=== PATIENT | female | born 1960 | race Caucasian/White ===

== ENCOUNTER 2020-06-30 13:15 | Outpatient (REF) | payer OTHER, SELFPAY ==
--- NOTE | ~2020-06-30 | MM_ITS ---
EXAMINATION: MM SCREENING DIGITAL BREAST TOMOSYNTHESIS, BILATERAL CLINICAL INFORMATION: Screening. Asymptomatic. The lifetime risk of breast cancer based on the Tyrer-Cuzick Model is 8%. COMPARISON: Mammography: 03/21/2019, 01/30/2018, 01/24/2017 TECHNIQUE: Digital breast tomosynthesis is performed in both the craniocaudal and mediolateral oblique views along with computer-aided detection (CAD). Synthesized 2D images are generated from the tomosynthesis. FINDINGS: The breasts are heterogeneously dense, which may obscure small masses (ACR BI-RADS breast composition Category c). There are no significant masses, abnormal calcifications, or other abnormalities. The axilla and skin contours are unremarkable. No significant changes. MM/MM tomosynthesis screening BI IMPRESSION: No mammographic evidence of malignancy. ASSESSMENT: BI-RADS 1: Negative RECOMMENDATION: Routine annual mammography screening. This patient's information was entered into a reminder system with a target due date for their next mammogram.
== END 2020-06-30 13:16 | disposition home or self-care (01) ==
LOC: HO.MAMMO 13:15
PROVIDERS: PCP Internal Medicine; Visit Provider Internal Medicine
DX: Z12.31 Encounter for screening mammogram for malignant neoplasm of breast (principal)
CPT/HCPCS: 77063; 77067

== ENCOUNTER 2020-09-18 10:46 | Outpatient (REF) | payer OTHER, SELFPAY ==
--- NOTE | ~2020-09-18 | MM_ITS ---
EXAMINATION: BONE DENSITOMETRY CLINICAL INDICATION: Postmenopausal. COMPARISON: This is the patient's baseline examination. TECHNIQUE: Using a [employer] DXA System (software version: 13.1) manufactured by [employer], dual-energy x-ray absorptiometry was performed of the lumbar spine and left hip. The images are of good technical quality. Summary results are attached. FINDINGS: AP SPINE L1-L4: BMD 0.886 g/cm2, Z-score -0.8, T-score -2.4, osteopenia. LEFT FEMUR, NECK: BMD 0.701 g/cm2, Z-score -0.9, T-score -2.4, osteopenia. LEFT FEMUR, TOTAL: BMD 0.772 g/cm2, Z-score -0.7, T-score -1.9, osteopenia. IDENTIFIED RISK FACTORS: Height loss, tobacco use (current smoker), history of fracture (adult), menopause. HISTORY OF FRACTURE: Lower leg. MEDICATIONS: None listed. MM/XR DEXA axial skeleton IMPRESSION: 1. DIAGNOSIS: Osteopenia based on the lowest T-score value of -2.4 in the femoral neck and lumbar spine applying World Health Organization criteria. 2. 10-YEAR FRACTURE RISK PREDICTION, FRAX: Major osteoporotic fracture (clinical spine, forearm, hip or shoulder) 17.3%. Hip fracture 5.6%. 3. Treatment Recommendations: NOF guidelines recommend consideration for treatment in postmenopausal women and men age 50 and older presenting with the following: -A hip or vertebral (clinical or morphometric) fracture. -T-score less than or equal to -2.5 at the femoral neck or spine after appropriate evaluation to exclude secondary causes. -Low bone mass at the hip or spine and a 10-year fracture probability by FRAX of greater than or equal to 3% for hip fracture or greater than or equal to 20% for major osteoporotic fracture based on the [place] adapted WHO algorithm. 4. Other Recommendations: All treatment decisions require clinical judgment and consideration of individual patient factors, including patient preferences, comorbidities, previous drug use, risk factors not captured in the FRAX model (e.g. frailty, falls, vitamin D deficiency, increased bone turnover, interval significant decline in bone density) and possible under or overestimation of fracture risk by FRAX. Additional medical evaluation for secondary cause of low bone mineral density may be appropriate. FUTURE SCAN RECOMMENDATION: People with diagnosed cases of osteoporosis or at high risk for fracture should have regular bone mineral density tests. For patients eligible for Medicare, routine testing is allowed once every 2 years. The testing frequency can be increased to one year for patients who have rapidly progressing disease, those who are receiving or discontinuing medical therapy to restore bone mass, or have additional risk factors.
== END 2020-09-18 10:47 | disposition home or self-care (01) ==
LOC: HO.MAMMO 10:46
PROVIDERS: Visit Provider Internal Medicine
DX: Z13.820 Encounter for screening for osteoporosis (principal); Z78.0 Asymptomatic menopausal state; R29.890 Loss of height; Z72.0 Tobacco use; Z87.81 Personal history of (healed) traumatic fracture
CPT/HCPCS: 77080

== ENCOUNTER 2021-08-06 11:01 | Outpatient (REF) | payer OTHER, SELFPAY ==
--- NOTE | ~2021-08-06 | MM_ITS ---
EXAMINATION: MM SCREENING DIGITAL BREAST TOMOSYNTHESIS, BILATERAL CLINICAL INFORMATION: Screening. Asymptomatic. The lifetime risk of breast cancer based on the Tyrer-Cuzick Model is 9%. COMPARISON: Mammography: 06/30/2020, 03/21/2019, 01/30/2018, 01/24/2017 TECHNIQUE: Digital breast tomosynthesis is performed in both the craniocaudal and mediolateral oblique views along with computer-aided detection (CAD). Synthesized 2D images are generated from the tomosynthesis. FINDINGS: The breasts are heterogeneously dense, which may obscure small masses (ACR BI-RADS breast composition Category c). There is a 0.5 cm focal nodular asymmetry posterior 11:30 left breast. Margins are ill-defined. Patient will be recalled for additional imaging. The remainder of the breasts show no significant changes from prior studies. There are scattered benign round and coarse round calcifications. The axilla and skin contours are unremarkable. MM/MM tomosynthesis screening BI IMPRESSION: Left: -Small focal asymmetric density posterior 11:30 left breast. Right: -No mammographic evidence of malignancy. ASSESSMENT: BI-RADS 0: Incomplete - Need Additional Imaging Evaluation RECOMMENDATION: 1. Additional views of the left breast for margins (spot CC, spot ML). 2. Targeted ultrasound left breast. 3. Radiology department staff will contact the patient for additional imaging. This patient's information was entered into a reminder system with a target due date for their next mammogram.
== END 2021-08-06 11:02 | disposition home or self-care (01) ==
LOC: HO.MAMMO 11:01
PROVIDERS: Visit Provider Internal Medicine
DX: Z12.31 Encounter for screening mammogram for malignant neoplasm of breast (principal)
CPT/HCPCS: 77063; 77067

== ENCOUNTER 2021-08-18 10:27 | Outpatient (REF) | payer OTHER, SELFPAY ==
--- NOTE | ~2021-08-18 | MM_ITS ---
EXAMINATION: MM DIAGNOSTIC DIGITAL BREAST TOMOSYNTHESIS, LEFT US DIAGNOSTIC ULTRASOUND BREAST, LEFT CLINICAL INFORMATION: Recall from screening for 5 mm focal nodular asymmetry posterior 11:30 left breast. TC score 9%. Family history breast cancer, sister. COMPARISON: Mammography: 08/06/2021, 06/30/2020, 03/21/2019, 01/30/2018, 01/24/2017 TECHNIQUE: Digital breast tomosynthesis is performed. 2D images are generated from the tomosynthesis. The following views are obtained: Spot CC, spot ML. Ultrasound left breast is targeted to the upper breast by both the corrugated fastener driver and radiologist independently. Grayscale imaging and color Doppler are performed without and with harmonics. FINDINGS: The breasts are heterogeneously dense, which may obscure small masses (ACR BI-RADS breast composition Category c). The additional spot views show scattered fibroglandular densities without appreciable three-dimensional focal asymmetric density. No architectural abnormality. Ultrasound demonstrates no cystic or solid mass or architectural abnormality. No focal duct ectasia. No skin thickening or edema tracking in soft tissue planes. Results are discussed with the patient at time of visit. Finding on recent mammography may have represented summation artifact. As a precaution, short interval six-month follow-up left mammography will be requested to exclude remote possibility of an occult developing density. MM/MM tomosynthesis added views L IMPRESSION: -Additional spot views show no convincing persistent focal asymmetric density or architectural abnormality. -Normal targeted left breast ultrasound. ASSESSMENT: BI-RADS 3: Probably Benign RECOMMENDATION: Diagnostic left mammography in 6 months. This patient's information was entered into a reminder system with a target due date for their next mammogram.
== END 2021-08-18 10:28 | disposition home or self-care (01) ==
LOC: HO.MAMMO 10:27
PROVIDERS: PCP Internal Medicine; Visit Provider Internal Medicine
DX: R92.2 Inconclusive mammogram (principal)
CPT/HCPCS: 76642; 77061; 77065

== ENCOUNTER 2022-02-18 10:43 | Outpatient (REF) | payer OTHER, SELFPAY ==
--- NOTE | ~2022-02-18 | MM_ITS ---
EXAMINATION: MM DIAGNOSTIC DIGITAL BREAST TOMOSYNTHESIS, LEFT CLINICAL INFORMATION: Short interval six-month follow-up for small nodular asymmetric density posterior 11:30 left breast with no persistence on recall additional views or ultrasound. Assess for developing density. Family history breast cancer, sister. TC score 9%. COMPARISON: Mammography: 08/18/2021, 08/06/2021, 06/30/2020, left breast ultrasound 08/18/2021 TECHNIQUE: Digital breast tomosynthesis is performed in both the craniocaudal and mediolateral oblique views along with computer-aided detection (CAD). Synthesized 2D images are generated from the tomosynthesis. FINDINGS: The breasts are heterogeneously dense, which may obscure small masses (ACR BI-RADS breast composition Category c). The asymmetric density posterior 11:30 position is no longer demonstrated. There is no developing density or interval architectural abnormality. The remainder of the breast parenchymal pattern is similar to prior studies. No abnormal calcifications. The axilla and skin contours are unremarkable. Results are provided to the patient at time of visit by the technologist. MM/MM tomosynthesis diagnostic LT IMPRESSION: -No mammographic evidence of malignancy. -The finding for follow-up is no longer demonstrated. ASSESSMENT: BI-RADS 2: Benign RECOMMENDATION: Routine annual mammography screening. This patient's information was entered into a reminder system with a target due date for their next mammogram.
== END 2022-02-18 10:44 | disposition home or self-care (01) ==
LOC: HO.MAMMO 10:43
PROVIDERS: Visit Provider Internal Medicine
DX: R92.2 Inconclusive mammogram (principal)
CPT/HCPCS: 77061; 77065

== ENCOUNTER 2022-07-27 09:52 | Outpatient (REF) | payer OTHER, SELFPAY ==
[2022-07-27 11:18] LABS: MANUAL DIFF FLAG NO
[2022-07-27 11:24] LABS: Appearance Urine Clear; Color Urine Yellow; Glucose Urine UA Negative (Negative); Leukocyte Esterase Urine Small (1+) (Negative); Nitrite Urine Negative (Negative); PH 5.5 (5.0-9.0); Specific Gravity - Urine 1.015 (1.005-1.025); UMIC TRIGGER UA YES; Urine Blood Negative (Negative); Urine Ketones Trace mg/dL (Negative); Urine Protein Negative (Neg-Trace)
[2022-07-27 11:31] LABS: Bacteria Urine None Seen (None Seen); Hyaline Casts Urine 0-2 /LPF (0-2); RBC Urine 0-2 /HPF (0-2)
[2022-07-27 11:35] LABS: Basophils Absolute Auto 0.1 X10*3/uL (0.0-0.2); Basophils Percent Auto 0.7 % (0-2); Eosinophils Absolute Auto 0.1 X10*3/uL (0.0-0.4); Eosinophils Percent Auto 1.2 % (0-4); Hematocrit 42.8 % (37.0-47.0); Hemoglobin 14.3 g/dl (12.0-16.0); Imm Gran Abs Auto 0.02 X10*3/uL (0.00-0.03); Imm Gran Pct Auto 0.2 % (0.0-0.4); Lymphocytes Percent Auto 24.6 % (20-40); Mean Corpuscular HGB Conc 33.4 g/dl (31.0-35.0); Mean Corpuscular Hemoglobin 32.8 pg (27.0-33.0); Mean Corpuscular Volume 98.2 fL (80.0-98.0); Mean Platelet Volume 9.2 fL (9.4-12.3); Monocytes Absolute Auto 0.6 X10*3/uL (0.1-1.2); Monocytes Percent Auto 7.3 % (2-11); Neutrophils Absolute Auto 5.3 x10*3/uL (2.0-8.3); Platelet Count 296 X10*3/uL (160-400); Red Blood Count 4.36 X10*6/uL (4.20-5.50); Red Cell Distribution Width 12.4 % (11.0-16.0); White Blood Count 8.1 X10*3/uL (4.8-10.8)
[2022-07-27 12:09] LABS: Alanine Aminotransferase 23 U/L (0-31); Albumin Level 4.5 g/dL (3.5-5.0); Alkaline Phosphatase 65 U/L (39-117); Anion Gap 15 (12-20); Aspartate Amino Transferase 24 U/L (5-31); Bilirubin Total 0.6 mg/dL (0.0-1.0); Blood Urea Nitrogen 8 mg/dL (9-16); Calcium 9.7 mg/dL (8.4-10.2); Carbon Dioxide 27 mmol/L (22-29); Chloride 100 mmol/L (96-108); Cholesterol 291 mg/dL; Estimated Glomerular Filt Rate > 60; Glucose Fasting 86 mg/dL (60-99); HDL Cholesterol 76 mg/dL; LDL Cholesterol Calculated 180 mg/dl; Lipase 40 U/L (8-78); Potassium 3.7 mmol/L (3.3-5.1); Sodium 138 mmol/L (135-145); Triglycerides 175 mg/dL; Vitamin D 25-OH Total 16.7 ng/mL (>30)
== END 2022-07-27 09:53 | disposition home or self-care (01) ==
LOC: HO.HMGCLDS 09:52
PROVIDERS: PCP Internal Medicine; Visit Provider Internal Medicine
DX: E78.00 Pure hypercholesterolemia, unspecified (principal); R10.9 Unspecified abdominal pain; M85.80 Other specified disorders of bone density and structure, unspecified site
CPT/HCPCS: 36415; 80053; 80061; 81001; 82306; 83690; 85025

== ENCOUNTER 2022-08-23 12:49 | Outpatient (REF) | payer OTHER, SELFPAY ==
--- NOTE | ~2022-08-23 | MM_ITS ---
EXAMINATION: MM SCREENING DIGITAL BREAST TOMOSYNTHESIS, BILATERAL CLINICAL INFORMATION: Screening. Asymptomatic. Family history breast cancer, sister. The lifetime risk of breast cancer based on the Tyrer-Cuzick Model is 9%. COMPARISON: Mammography: 02/18/2022, 08/18/2021, 08/06/2021, 06/30/2020, 03/21/2019; left breast ultrasound 08/18/2021. TECHNIQUE: Digital breast tomosynthesis is performed in both the craniocaudal and mediolateral oblique views along with computer-aided detection (CAD). Synthesized 2D images are generated from the tomosynthesis. FINDINGS: The breasts are heterogeneously dense, which may obscure small masses (ACR BI-RADS breast composition Category c). Breast tissue composition borders on average fibroglandular. There are no significant masses, abnormal calcifications, or other abnormalities. No developing density or architectural abnormality. The axilla and skin contours are unremarkable. No significant changes. MM/MM tomosynthesis screening BI IMPRESSION: No mammographic evidence of malignancy. ASSESSMENT: BI-RADS 1: Negative RECOMMENDATION: Routine annual mammography screening. This patient's information was entered into a reminder system with a target due date for their next mammogram.
== END 2022-08-23 12:50 | disposition home or self-care (01) ==
LOC: HO.MAMMO 12:49
PROVIDERS: PCP Internal Medicine; Visit Provider Internal Medicine
DX: Z12.31 Encounter for screening mammogram for malignant neoplasm of breast (principal)
CPT/HCPCS: 77063; 77067

== ENCOUNTER 2023-05-27 08:41 | Outpatient (REF) | payer OTHER, SELFPAY ==
[2023-05-27 10:30] LABS: MANUAL DIFF FLAG NO
[2023-05-27 10:34] LABS: Basophils Absolute Auto 0.1 X10*3/uL (0.0-0.2); Basophils Percent Auto 0.9 % (0-2); Eosinophils Absolute Auto 0.2 X10*3/uL (0.0-0.4); Eosinophils Percent Auto 1.8 % (0-4); Hematocrit 43.1 % (37.0-47.0); Hemoglobin 14.5 g/dl (12.0-16.0); Imm Gran Abs Auto 0.03 X10*3/uL (0.00-0.03); Imm Gran Pct Auto 0.3 % (0.0-0.4); Lymphocytes Absolute Auto 1.7 X10*3/uL (1.2-4.9); Lymphocytes Percent Auto 17.1 % (20-40); Mean Corpuscular HGB Conc 33.6 g/dl (31.0-35.0); Mean Corpuscular Hemoglobin 33.6 pg (27.0-33.0); Monocytes Absolute Auto 0.6 X10*3/uL (0.1-1.2); Monocytes Percent Auto 5.8 % (2-11); Neutrophils Absolute Auto 7.5 x10*3/uL (2.0-8.3); Neutrophils Percent Auto 74.1 % (45-73); Platelet Count 329 X10*3/uL (160-400); Red Blood Count 4.31 X10*6/uL (4.20-5.50); Red Cell Distribution Width 12.8 % (11.0-16.0); White Blood Count 10.2 X10*3/uL (4.8-10.8)
[2023-05-27 11:06] LABS: Alanine Aminotransferase 29 U/L (0-31); Albumin Level 4.6 g/dL (3.5-5.0); Alkaline Phosphatase 69 U/L (39-117); Anion Gap 15 (12-20); Aspartate Amino Transferase 34 U/L (5-31); Bilirubin Total 0.6 mg/dL (0.0-1.0); Blood Urea Nitrogen 9 mg/dL (9-16); Calcium 9.8 mg/dL (8.4-10.2); Carbon Dioxide 27 mmol/L (22-29); Chloride 101 mmol/L (96-108); Cholesterol 274 mg/dL (<200); Estimated Glomerular Filt Rate > 60; Glucose Fasting 90 mg/dL (60-99); HDL Cholesterol 86 mg/dL (>40); LDL Cholesterol Calculated 152 mg/dL (<100); Potassium 3.8 mmol/L (3.3-5.1); Sodium 139 mmol/L (135-145); Total Protein 7.6 g/dL (6.5-8.0); Triglycerides 180 mg/dL (<150)
== END 2023-05-27 08:42 | disposition home or self-care (01) ==
LOC: HO.HMGCLDS 08:41
PROVIDERS: PCP Internal Medicine; Visit Provider Internal Medicine
DX: E78.00 Pure hypercholesterolemia, unspecified (principal); E55.9 Vitamin D deficiency, unspecified; Z86.010 Personal history of colon polyps
CPT/HCPCS: 36415; 80053; 80061; 82306; 85025

== ENCOUNTER 2023-10-10 10:33 | Outpatient (REF) | payer OTHER, SELFPAY ==
--- NOTE | ~2023-10-10 | MM_ITS ---
EXAMINATION: MM SCREENING DIGITAL BREAST TOMOSYNTHESIS, BILATERAL CLINICAL INFORMATION: Screening. Asymptomatic. COMPARISON: Mammography: This study is compared with prior exams dating back to 2019. TECHNIQUE: Digital breast tomosynthesis is performed in both the craniocaudal and mediolateral oblique views along with computer-aided detection (CAD). Synthesized 2D images are generated from the tomosynthesis. FINDINGS: The breasts are heterogeneously dense, which may obscure small masses (ACR BI-RADS breast composition Category c). There are no significant masses, abnormal calcifications, or other abnormalities. MM/MM tomosynthesis screening BI IMPRESSION: No mammographic evidence of malignancy. ASSESSMENT: BI-RADS BI-RADS 1 - Negative RECOMMENDATION: Routine annual mammography screening. 1 year F/U This examination should not preclude the clinical evaluation of a suspicious palpable abnormality. This patient's information was entered into a reminder system with a target due date for their next mammogram. Electronically signed by: Damaris Salomon MD 11/08/2023 06:42 AM EDT
== END 2023-10-10 10:34 | disposition home or self-care (01) ==
LOC: HO.MAMMO 10:33
PROVIDERS: PCP Internal Medicine; Visit Provider Internal Medicine
DX: Z12.31 Encounter for screening mammogram for malignant neoplasm of breast (principal)
CPT/HCPCS: 77063; 77067

== ENCOUNTER → 2023-10-10 10:45 | Outpatient (BNV) | payer OTHER, SELFPAY | PROVIDERS: PCP Internal Medicine; Visit Provider Radiology Diagnostic Radiology | DX: Z12.31 Encounter for screening mammogram for malignant neoplasm of breast (principal) | CPT/HCPCS: 77063; 77067 ==

== ENCOUNTER → 2023-10-31 08:51 | Outpatient (REF) | payer OTHER, SELFPAY ==
--- NOTE | 2023-10-31 08:53 | CA_ITS ---
Acquisition Time: 2023-10-31 09:10:30 Total Exercise Time: 00:07:36 Test Indications: CP Medications: LORAZAPAM ATORVASTATIN Protocol: ALMA Max HR: 136 BPM 85% of Pred: 159 BPM Max BP: 152/082 mmHG Max Work Load: 9.4 METS Exercise stress test exercise 7 min 36 sec of Alma protocol 85% MPHR, with 1-2/10 chest tightness at baseline. increase to 3-4/10, with mild SOB, with isolated PVCt, with normotensive response to exericse, without EKG changes. Chest discomfort returned to baseline. Test reviewed with Dr. Kramer. Referred By: Moisés Schuster Overread By: Jo Ann Wallace
== END ==
LOC: HO.CARD 08:51
PROVIDERS: PCP Internal Medicine; Visit Provider Internal Medicine
DX: R07.9 Chest pain, unspecified (principal)
CPT/HCPCS: 93017

== ENCOUNTER → 2023-10-31 08:53 | Outpatient (BNV) | payer OTHER, SELFPAY | PROVIDERS: PCP Internal Medicine; Visit Provider Nurse Practitioner | DX: R06.02 Shortness of breath (principal); I49.3 Ventricular premature depolarization | CPT/HCPCS: 93016; 93018 ==

== ENCOUNTER 2023-11-08 08:23 | Outpatient (AMB) | payer OTHER, SELFPAY ==
--- NOTE | 2023-11-08 08:24 | AM.OFFWIN_ITS ---
Intake Vital Signs 11/08/23 08:33 Height 5 ft 1 in Weight 99 lb BMI 18.7 BP 140/98 H Blood Pressure Location Lt brachial Position Sitting Pulse 78 Pulse Source Pulse Oximeter Pulse Oximetry (%) 100 Oxygen Delivery Method Room Air Intake Visit Reasons: EP ?UTI/Yeast Intake Note: pt c/o urinary symptoms and ? yeast infection. Started Patient Tobacco Use Status: Never used Tobacco Allergies No Known Allergies Allergy (Verified 11/08/23 08:25) some adhesives Allergy (Unknown, Uncoded 11/08/23 08:25) rash Medication List - Last Reconciled 11/08/23 by Jayjay Vee MD atorvastatin 10 mg PO DAILY lorazepam mg PO Do you need a note to return to daycare/school/sports/work: No HPI EP ?UTI/Yeast HPI Details Patient is 63-year-old female started having vaginal itching about 10 days ago Use [id number] antifungal cream which did not help Came in today to be evaluated for possible UTI or yeast infection Also having discharge from the vagina On examination she has erythema around genital area We have taken vaginal swab Meanwhile I am treating her for yeast infection with Diflucan 2 tablets Q 3 days UA did not show any signs of infection. Review system reveals no abdominal pain, no nausea no vomiting no back pain no fever no chills PFSH Social History Patient Tobacco Use Status: Never used Tobacco Review of Systems Const All systems reviewed & are unremarkable except as noted in HPI and below Physical Exam Vital Signs: Last Vital Signs Pulse 78 11/08/23 08:33 BP 140/98 H 11/08/23 08:33 Pulse Ox 100 11/08/23 08:33 Oxygen Delivery Method Room Air 11/08/23 08:33 BMI result Body Mass Index 18.7 Const General: no acute distress Orientation/consciousness: patient oriented x3 Eyes General: appearance normal, both eyes and all related structures Resp Effort & Inspection: normal respiratory effort and able to speak in complete sentences Auscultation: clear to auscultation bilaterally Other: Erythema around genitalia labia majora present Neuro General: patient oriented x3 Psych Mental Status: mental status grossly normal Results AMB Urinalysis, Automated UA Leukoctes 0 Brent/uL Last Edit by CHRIS Ruiz on 11/08/23 08:37 UA Nitrite Negative Last Edit by Debbi Garcia [facility] on 11/08/23 08:37 UA Urobilinogen 0.2 mg/dL Last Edit by Debbi Garcia [facility] on 11/08/23 08:37 UA Protein 0 mg/dL Last Edit by Debbi Garcia [facility] on 11/08/23 08:37 UA pH 6.0 Last Edit by Debbi Garcia [facility] on 11/08/23 08:37 UA Blood 0 Roby/uL Last Edit by Debbi Garcia [facility] on 11/08/23 08:37 UA Specific [facility] 1.025 Last Edit by Debbi Garcia [facility] on 11/08/23 08:37 UA Ketone Negative Last Edit by Debbi Garcia [facility] on 11/08/23 08:37 UA Bilirubin 0 mg/dL Last Edit by Debbi Garcia [facility] on 11/08/23 08:37 UA Glucose 0 mg/dL Last Edit by Debbi Garcia [facility] on 11/08/23 08:37 Results Reviewed Results Reviewed: Laboratory Last Values Urine pH (Auto) 6.0 11/08/23 08:36 Specific [facility] (Auto) 1.025 11/08/23 08:36 Urine Protein (Auto) 0 mg/dL 11/08/23 08:36 Glucose (UA)(Auto) 0 mg/dL 11/08/23 08:36 Urine Ketones (Auto) Negative 11/08/23 08:36 Urine Blood (Auto) 0 Roby/uL 11/08/23 08:36 Urine Nitrite (Auto) Negative 11/08/23 08:36 Urine Bilirubin (Auto) 0 mg/dL 11/08/23 08:36 Urine Urobilinogen (Auto) 0.2 mg/dL 11/08/23 08:36 Leukocyte Esterase (Auto) 0 Brent/uL 11/08/23 08:36 Assessment & Plan Assessment & Plan (1) Acute vaginitis: Code(s): N76.0 - Acute vaginitis Plan Patient is 63-year-old female started having vaginal itching about 10 days ago Use [id number] antifungal cream which did not help Came in today to be evaluated for possible UTI or yeast infection Also having discharge from the vagina On examination she has erythema around genital area We have taken vaginal swab Meanwhile I am treating her for yeast infection with Diflucan 2 tablets Q 3 days UA did not show any signs of infection. Review system reveals no abdominal pain, no nausea no vomiting no back pain no fever no chills Orders: Orders AMB Urinalysis Automated Today Z13.9 - Encounter for screening, unspecified Bacterial Vaginosis Panel Today N76.0 - Acute vaginitis Medications: New fluconazole may repeat second dose 72 hrs after first dose if symptoms persist 150 mg PO Q3D 2 tabs 0RF 2 doses nystatin 1 appl topical DAILY 30 grams 1RF 30 days Coding Level of Care Code Est Pt Level 3 (80291) Diagnoses Acute vaginitis N76.0
[2023-11-08 08:33] VITALS: BP 140/98; PULSE 78; O2SAT 100; BMI 18.7
== END 2023-11-08 09:24 | disposition home or self-care (01) ==
PROVIDERS: PCP Internal Medicine; Visit Provider Internal Medicine
DX: N76.0 Acute vaginitis (principal)
CPT/HCPCS: 81003; 99213

== ENCOUNTER 2023-11-08 08:56 | Outpatient (REF) | payer OTHER, SELFPAY ==
[2023-11-09 10:31] LABS: Bacterial Vaginosis PCR NEGATIVE (Negative); Candida Group PCR NOT DETECTED (Not Detect); Candida glab krusei PCR NOT DETECTED (Not Detect); Trichomonas vaginalis PCR NOT DETECTED (Not Detect)
== END 2023-11-08 08:57 | disposition home or self-care (01) ==
LOC: HO.LAB 08:56
PROVIDERS: Visit Provider Internal Medicine
DX: N76.0 Acute vaginitis (principal)
CPT/HCPCS: 0352U

== ENCOUNTER 2023-11-15 08:01 | Outpatient (AMB) | payer OTHER, SELFPAY ==
[2023-11-15 08:02] VITALS: BP 122/84; PULSE 100; TEMP 37.1; O2SAT 98; BMI 18.7
--- NOTE | 2023-11-15 08:02 | AM.OFFWIN_ITS ---
Intake Vital Signs 11/15/23 08:02 Height 5 ft 1 in Weight 99 lb BMI 18.7 BP 122/84 Blood Pressure Location Rt brachial Position Sitting Pulse 100 Pulse Source Pulse Oximeter Temp 98.8 F Temp Source Oral Pulse Oximetry (%) 98 Oxygen Delivery Method Room Air Intake Visit Reasons: EP Yeast infection/not better Intake Note: pt c/o yeast infection. Not improving. Seen in walk-in 11/07 Patient Tobacco Use Status: Never used Tobacco Allergies No Known Allergies Allergy (Verified 11/15/23 08:03) some adhesives Allergy (Unknown, Uncoded 11/15/23 08:03) rash Do you need a note to return to daycare/school/sports/work: No HPI HPI Comments History of Present Illness Details 63 Y/O Female patient who presents to [facility] walk in clinic with c/o Vaginal itching. She was seen here at clinic 11/08/23 for similar complains. She was given Nystatin powder and Fluoconazole Oral. Reports some minimal symptom improvement but continues to have vaginal (around the labia tissue) itching. She is not sexually active and she is Post-menopausal. [facility] Social History Patient Tobacco Use Status: Never used Tobacco Review of Systems Const All systems reviewed & are unremarkable except as noted in HPI and below Physical Exam Vital Signs: Last Vital Signs Temp 98.8 F 11/15/23 08:02 Pulse 100 11/15/23 08:02 BP 122/84 11/15/23 08:02 Pulse Ox 98 11/15/23 08:02 Oxygen Delivery Method Room Air 11/15/23 08:02 BMI result Body Mass Index 18.7 Const General: cooperative and no acute distress Orientation/consciousness: patient oriented x3 Other: Pelvic exam deferred. General: Yes deferred Neuro General: patient oriented x3, gait normal and moves all extremities Psych Speech and movement: Normal speech and movement present Assessment & Plan Assessment & Plan (1) Acute vaginitis: Code(s): N76.0 - Acute vaginitis Plan: Prescribed Clotrimazole/Betamethasone combo cream to be applied at Bedtime on the outside Prescribed Fluconazole once weekly for the next 4 weeks. Discuss possibility of Vaginal atrophy due to post-menopause. Advised to f/u with Loss Control Engineer for routine exams. Medications: New fluconazole TAKE 1 TABLET ONCE A WEEK FOR THE NEXT 4 WEEKS. 7 tabs 0RF N76.0 - Acute vaginitis clotrimazole-betamethasone 1-0.05 % 1 appl topical BEDTIME 2 weeks 45 grams 0RF N76.0 - Acute vaginitis Discontinued nystatin Discontinued Reason: Patient Completed Course 1 appl topical DAILY 30 days 30 grams 1RF Coding Level of Care Code Est Pt Level 3 (92327) Diagnoses Acute vaginitis N76.0 Time Spent (min) 15
== END 2023-11-15 08:34 | disposition home or self-care (01) ==
PROVIDERS: PCP Internal Medicine; Visit Provider Nurse Practitioner Family
DX: N76.0 Acute vaginitis (principal)
CPT/HCPCS: 99213

== ENCOUNTER 2023-11-23 13:46 | Outpatient (AMB) | payer OTHER, SELFPAY ==
[2023-11-23 13:55] VITALS: BP 122/70; BMI 18.9
--- NOTE | 2023-11-23 13:55 | MHC.OFFVIS ---
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 lorazepam mg PO Post menopausal: Yes Do you need a note to return to daycare/school/sports/work: No HPI HPI Vaginal itch: Details: Patient is here because she is frustrated as she has had severe vaginal itching and burning that started in the middle of a Tuesday night before labor day weekend, she was seen at urgent care twice 1 week apart and assessed as having a yeast infection and treated accordingly, with antifungal creams and Diflucan. postmenopausal changes were noted. Patient says things have gotten better since when the 1st fluconazole dose was given, and she has repeated it as instructed, she took it 1st time on a Tuesday, 2nd time on Tuesday, the following Tuesday, and then this past Tuesday. she just is not completely better and she is frustrated and anxious and still uncomfortable, and wonders what else could going on, and what else it possibly could be. She is not sexually active and has not been for 12 years she has no concerns whatsoever about STDs she has not had Pap smear in very years and wondered after the discussion yeast if that could find any thing in why she did not have that today discussed that she is not scheduled today for an annual with Pap but that definitely does need to be her next appointment as is appropriate and teaching done about Pap smear and HPV screening and other pathologies that are not at all evident today as well. Her exam is consistent with atrophic changes and there was no evident inflammation today, though this could be consistent with healing from yeast infection symptoms that are still going she found that the vaginal creams even the 7 day cream contributed to burning so she did not use them she did not find the the steroid/antifungal cream either. Her coworkers suggested coconut oil she is reluctant she says she does not use anything for cotton underwear only time she has the panty liners she was using the cream because she stay in she is lives with does not use any are chemicals is been no change to detergents or anything. PFSH Medical History (Updated 11/23/23 @ 15:13 by Dorothy Jimenez CNM) Anxiety High cholesterol Social History (Updated 11/23/23 @ 13:59 by Carina Phillips [facility]) Alcohol intake: current Alcohol intake frequency: holidays/special occasions only Tobacco use type: Cigarette Female Reproductive History Menstrual Age of Menarche: 15 Duration of menses: 3-5 days control method: none Total pregnancies: 1 Full term: 1 History of abnormal pap smear: No (previous pap negative,per patient ,unknown date) Physical Exam Vital Signs: Last Vital Signs BP 122/70 11/23/23 13:55 BMI result Body Mass Index 18.9 Other: Normal atrophic postmenopausal changes to external and internal structures and vulvar mucosa noted. Currently there is no visual or clinical visual sign of yeast and no abnormal discharge whatsoever. Suspect yeast is almost completely and she just has some lingering symptoms. External Female Exam: normal external appearance and normal appearance of the urethra Speculum Exam - Vagina: normal appearance of the vagina and normal vaginal discharge Speculum Exam - Cervix: normal appearance of the cervix and Cervical os closed Assessment & Plan Assessment & Plan (1) Acute vaginitis: Comment: Treated and 11/14 at urgent care appropriately with improvement still has lingering symptoms additional Rx sent for more Diflucan should she need it. Code(s): N76.0 - Acute vaginitis Category: Medical Plan Patient is here because she is frustrated as she has had severe vaginal itching and burning that started in the middle of a Tuesday night before labor day weekend, she was seen at urgent care twice 1 week apart and assessed as having a yeast infection and treated accordingly, with antifungal creams and Diflucan. postmenopausal changes were noted. Patient says things have gotten better since when the 1st fluconazole dose was given, and she has repeated it as instructed, she took it 1st time on a Tuesday, 2nd time on Tuesday, the following Tuesday, and then this past Tuesday. she just is not completely better and she is frustrated and anxious and still uncomfortable, and wonders what else could going on, and what else it possibly could be. She is not sexually active and has not been for 12 years she has no concerns whatsoever about STDs she has not had Pap smear in very years and wondered after the discussion yeast if that could find any thing in why she did not have that today discussed that she is not scheduled today for an annual with Pap but that definitely does need to be her next appointment as is appropriate and teaching done about Pap smear and HPV screening and other pathologies that are not at all evident today as well. Her exam is consistent with atrophic changes and there was no evident inflammation today, though this could be consistent with healing from yeast infection symptoms that are still going she found that the vaginal creams even the 7 day cream contributed to burning so she did not use them she did not find the the steroid/antifungal cream either. Her coworkers suggested coconut oil she is reluctant she says she does not use anything for cotton underwear only time she has the panty liners she was using the cream, because she did not want to stain her clothes. She does not use any harsh chemicals, there have been no change to detergents or anything. I also checked her blood sugars done in the past couple of years and they are both within normal limits 83 and 90 for fasting blood sugars she has no other medical problems, denies any recent treatment with antibiotics, did not cook with hot chillie's and then touch her labia, no new extraneous factors that she can think of. Extensive discussion about the length time fragile postmenopausal mucosa can take to heal from the effects. It appears that she is well on the way to healing even though she does not feel completely well yet. I recommend she continue do it she is doing cotton her cool water only and I also sent another prescription for more fluconazole so that she could repeated every 3 days until she feels completely well. She does need an annual exam and Pap smear screening and full discussion about what Pap smears are screening for and testing for the HPV virus is assessing and she bears no symptoms whatsoever of anything that could construed as HPV or HSV for that matter. I suspect that she will gradually feel better and just take a little bit more time. Discussed the fragility of postmenopausal mucosa. Discussed that she may well get a call about the presence of either yeast or BV and she will be offered treatment and be the nurse calling and I do not expect that she would need treatment for anything else because I am treating her now for the yeast and she can either use more Diflucan or not. Orders: Orders CT NG by PCR Today N89.8 - Other specified noninflammatory disorders of vagina Bacterial Vaginosis Panel Today N89.8 - Other specified noninflammatory disorders of vagina Medications: New fluconazole may repeat second dose 72 hrs after first dose if symptoms persist 150 mg PO Q3D 2 doses 2 tabs 2RF Coding Level of Care Code New Pt Level 3 (68393) Diagnoses Acute vaginitis N76.0
== END 2023-11-23 14:55 | disposition home or self-care (01) ==
PROVIDERS: PCP Internal Medicine; Visit Provider Advanced Practice Midwife
DX: N76.0 Acute vaginitis (principal)
CPT/HCPCS: 99203

== ENCOUNTER 2023-11-23 13:46 | Outpatient (REF) | payer OTHER, SELFPAY ==
[2023-11-24 04:11] LABS: CT PCR NOT DETECTED (Not Detect.); NG PCR NOT DETECTED (Not Detect.)
[2023-11-24 10:43] LABS: Bacterial Vaginosis PCR NEGATIVE (Negative); Candida Group PCR NOT DETECTED (Not Detect); Candida glab krusei PCR NOT DETECTED (Not Detect); Trichomonas vaginalis PCR NOT DETECTED (Not Detect)
== END 2023-11-23 13:47 | disposition home or self-care (01) ==
LOC: HO.LAB 13:46
PROVIDERS: PCP Internal Medicine; Visit Provider Advanced Practice Midwife
DX: N76.0 Acute vaginitis (principal)
CPT/HCPCS: 0352U; 87491; 87591; 99202

== ENCOUNTER 2024-05-02 | Outpatient (REF) | payer OTHER, SELFPAY | END 2024-05-02 00:01 | disposition home or self-care (01) | LOC: HO.LNP | PROVIDERS: Visit Provider Advanced Practice Midwife | DX: Z13.89 Encounter for screening for other disorder (principal) ==

== ENCOUNTER 2024-05-02 13:04 | Outpatient (AMB) | payer OTHER, SELFPAY ==
[2024-05-02 13:12] VITALS: BP 116/62; BMI 18.9
--- NOTE | 2024-05-02 13:12 | A.OFFVIS_ITS ---
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 She usually sees Dr. Schuster, but he is unwell and is retiring and she will be seeing whoever is taking over the practice after she gets regular colonoscopies because of the family history of colon cancer and we will be following up on that and she gets regular mammograms and does self-breast exam and declines a breast exam today. She was seen in this office last November when she had her very 1st experience with discomfort from a yeast infection that was very uncomfortable and she never had anything like that she says it took 5 weeks for to feel better she has no comorbidities like diabetes or anything. 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 [facility] Medical History Anxiety High cholesterol Social History Alcohol intake: current Alcohol intake frequency: holidays/special occasions only Tobacco use type: Cigarette Female Reproductive History Menstrual Age of Menarche: 15 control method: none Total pregnancies: 1 Full term: 1 History of abnormal pap smear: No (previous pap ,neg per pt.long time ago ) Physical Exam Vital Signs: Last Vital Signs BP 116/62 05/02/24 13:12 BMI result Body Mass Index 18.9 Other: Normal postmenopausal changes evident vagina atrophic but moist cervix pink appeared parous normal long mobile nontender uterus small mobile nontender adnexa nontender nonenlarged good tone with Kegel. No inflammatory changes noted. External Female Exam: normal external appearance Speculum Exam - Vagina: normal appearance of the vagina and normal vaginal discharge Speculum Exam - Cervix: normal appearance of the cervix Bimanual exam- vagina & uterus: normal bimanual exam, uterine size normal, consistency normal, uterine mobility normal, uterine shape normal and non-tender Bimanual Exam- Adnexa, other: normal adnexae, no masses and No adnexal tenderness Results Reviewed Results Reviewed: thor: PhuElham M Age/Sex: 63/F : 1960 Unit#: [id number] Attend Dr: Dorothy Jimenez CNM Re11/23/23 Status: DEP [facility] Disch: SPEC : [id number] JESÚS: 11/23/23-K STATUS: COMP REQ : [id number] RECD: 11/23/[address]: Dorothy Jimenez CNM COMP: 11/24/23 ENTERED: 11/23/[address]: Moisés Schuster MD ORDERED: CT NG by PCR QUERIES: CT NG Source: Vaginal Test Result Flag Reference CT PCR NOT DETECTED Not Detect. A not detected test result does not exclude the possibility of infection because test results can be affected by improper specimen collection, concurrent antibiotic therapy, or the number of organisms in the specimen which may be below the sensitivity of the test. As with many diagnostic tests, results from the Xpert CT/NG assay should be interpreted in conjunction with other laboratory and clinical data available to the clinician. Xpert CT/NG performance has not been evaluated in patients less than 14 years of age. The assay should not be used for the evaluation of suspected sexual abuse or for other medico-legal indications. Additional testing is recommended in any circumstance when false positive or false negative results could lead to adverse medical, social or psychological consequences. NG PCR NOT DETECTED Not Detect. A not detected test result does not exclude the possibility of infection because test results can be affected by improper specimen collection, concurrent antibiotic therapy, or the number of organisms in the specimen which may be below the sensitivity of the test. As with many diagnostic tests, results from the Xpert CT/NG assay should be interpreted in conjunction with other laboratory and clinical data available to the clinician. Xpert CT/NG performance has not been evaluated in patients less than 14 years of age. The assay should not be used for the evaluation of suspected sexual abuse or for other medico-legal indications. Additional testing is recommended in any circumstance when false positive or false negative results could lead to adverse medical, social or psychological consequences. thor: Elham [place] Age/Sex: 63/F : 1960 Unit#: [id number] Attend Dr: Dorothy Jimenez CNM Re11/23/23 Status: DEP REF Location: [facility] Disch: SPEC : [id number] JESÚS: 11/23/23-UNK STATUS: COMP REQ : [id number] RECD: 11/23/[address]: Dorothy Jimenez CNM COMP: 11/24/23 ENTERED: 11/23/[address]: Moisés Schuster MD ORDERED: BV Panel Test Result Flag Reference TV PCR NOT DETECTED Not Detect BV PCR NEGATIVE Negative The BV organism targets of the Xpert Xpress MVP test can be commensal in women; Xpert Xpress MVP positive results for bacterial vaginosis should be considered in conjunction with other clinical and patient information to determine the disease status. Organisms that are not detected by the Xpert Xpress MVP test have also been reported to be associated with BV and aerobic vaginitis. The Xpert Xpress MVP test performance has not been evaluated in patients under the age of 14. [facility] PCR NOT DETECTED Not Detect Can gla-kru NOT DETECTED Not Detect END OF REPORT Assessment & Plan Assessment & Plan (1) Well woman exam with routine gynecological exam: Code(s): Z01.419 - Encounter for gynecological examination (general) (routine) without abnormal findings Category: Medical (2) Cervical cancer screening: Code(s): Z12.4 - Encounter for screening for malignant neoplasm of cervix Category: Medical Plan -----Discussed in this visit the following: healthy balanced diet, regular and consistent exercise, getting recommended health screens, doing the best she can for her particular health concerns, kegel exercises, pap smear screening and followup recommendations, mammography screening and SBE, normal changes in cycles in her life stage--- . Patient declined her breast exam she does self breast exam and she gets regular mammograms and is getting her next 1 in July. She felt there was no need.. Pap smear was done discussed that if this 1 is negative with her negative history of anything a normal she would not need another Pap smear for 5 years in that would put her after age 67 so she need another 1 again. I did offer her a prescription for fluconazole in case she ever got another yeast infection but she decided she does not want 1 and she is going to hope for the best and hope she never gets 1 she found it very uncomfortable and says it took 5 weeks to get better. It was almost healed visually when she saw me in November, but it took awhile to feel completely gone. She has no other symptoms she will be seeing her primary whenever she can. And she will be following up with gastroenterology as well. Coding Level of Care Code Est Pt Prev Care 40-64y(04295) Diagnoses Well woman exam with routine gynecological exam Z01.419 Cervical cancer screening Z12.4
== END 2024-05-02 13:45 | disposition home or self-care (01) ==
PROVIDERS: PCP Internal Medicine; Visit Provider Advanced Practice Midwife
DX: Z01.419 Encounter for gynecological examination (general) (routine) without abnormal findings (principal)
CPT/HCPCS: 99396; 99459

== ENCOUNTER 2024-05-02 13:04 | Outpatient (REF) | payer OTHER, SELFPAY ==
--- OUTSIDE RECORDS SUMMARY | 2024-05-02 17:56 | XMS_ITS ---
Author Organization [facility] Address [address] [place] [address] Care Team Providers Care Manager Community Development Name Role Phone Moisés Schuster MD Primary Care Provider Unavaila Michael Aguiar Jr Unavailable [phone] REASON FOR VISIT cancel procedure Encounters Encounter Location Date Provider Diagnosis [facility] [address] [place] [address] 11/24/2022 Michael Sánchez Jr PLAN OF TREATMENT No Information
--- OUTSIDE RECORDS SUMMARY | 2024-05-02 17:56 | XMS_ITS | Patient Health Record ---
Author Organization [facility] Address [address] [place] [address] Care Team Providers Care Siene Maker Name Role Phone Moisés Schuster MD Primary Care Provider Michael Robles Jr Unavailable ALLERGIES No Known Allergies REASON FOR REFERRAL No Information MEDICATIONS Medication SIG (Take, Route, Frequency, Duration) Notes Start Date End Date Status LORazepam 0.5 MG 1 tablet as needed O rally every 6 hrs Active MiraLax (colon prep) 17 GM/SCOOP mixed with Gatorade or Crystal Light Orally begin at 5:00 p.m. the day before the procedure for 1 day 05/31/2022 Active Align 4 MG as directed Orally prn Active IMMUNIZATIONS Vaccine Route Administration Date Status Comme nts Influenza Unknown 12/23/2021 Administered Influenza Unknown 09/06/2018 Refused SOCIAL HISTORY Tobacco Use: Social History Observation Description Date Details (start date - stop date) Current Smoker NA - NA Sex Assigned At : Social History Observation Description Sex Assigned At Unknown Tobacco Use/Smoking Question Answer Notes Patient is a current smoker How often do you smoke cigarettes? every day How many cigarettes a day do you smoke? 5 or les s How soon after you wake up d o you smoke your first cigarette? within 5 minutes Are you interested in quitting? Thinking about q uitting Alcohol Screen Question Answer Notes Did you have a drink contain ing alcohol in the past year? Yes How often did you have a dri nk containing alcohol in the past year? 2 to 4 times a month (2 points) How many drinks did you have on a typical day when you were drinking in the past year? 1 or 2 drinks (0 point) How often did you have 6 or more drinks on one occasion in the past year? Never (0 point) Points 2 Interpretation Negative PROBLEMS Problem Type ICD Code Onset Dates Problem Status W/U Status Risk SNOMED Code Notes Problem Colon cancer screening (Z12.11) Active confirmed 335426732 Problem Change in bowel habits (R19.4) Active confirmed 265584106 Problem Irritable bowel syndrome with diarrhea (K58.0) Active confirmed 300714462 Problem 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) Active confirmed 464009880 PLAN OF TREATMENT Future Test Test Name Order Date COLONOSCOPY 01/18/2014 COLONOSCOPY 09/06/2018 COLONOSCOPY 05/31/2022 Insurance Providers Payer Name Payer Address Payer Phone Subscriber Number Group Number Insured Name Patient Relationship to Insured Coverage Start Date Coverage End Date [facility] [address] [address] [place], [place] [id number] WILMAR MORTON Self - patient is the insured MEDICAL (GENERAL) HISTORY Medical History History ICD Code anxiety Basal cell carcinoma Colonoscopy 05/24, multiple tubular adeno mas, three-year followup Surgical History Surgery Date(Month/Year) breast biopsy
--- OUTSIDE RECORDS SUMMARY | 2024-05-02 17:57 | XMS_ITS ---
Author Organization [facility] Address [address] [place] [address] Care Team Providers Care Used Car Renovator Name Role Phone Moisés Schuster MD Primary Care Provider Unavaila Michael Aguiar Jr Unavailable [phone] REASON FOR VISIT screening colon Encounters Encounter Location Date Provider Diagnosis [facility] [address] [place], [place] [id number] 01/11/2023 Michael Sánchez Jr PLAN OF TREATMENT No Information
[2024-05-08 11:19] LABS: HPV Genotype 16 Negative (Negative); HPV Genotype 18 Negative (Negative); HPV High Risk Negative (Negative)
== END 2024-05-02 13:05 | disposition home or self-care (01) ==
LOC: HO.LNP 13:04
PROVIDERS: PCP Internal Medicine; Visit Provider Advanced Practice Midwife
DX: Z01.419 Encounter for gynecological examination (general) (routine) without abnormal findings (principal); Z11.51 Encounter for screening for human papillomavirus (HPV)
CPT/HCPCS: 87626; 88175; 99396; 99459

== ENCOUNTER 2024-10-30 13:18 | Outpatient (AMB) | payer OTHER, SELFPAY ==
--- NOTE | 2024-10-30 13:26 | MHC.PC.OV ---
Vital Signs 10/30/24 13:28 Height 5 ft 1 in Weight 44.452 kg BMI 18.5 BP 120/72 Blood Pressure Location Lt brachial Position Sitting Pulse 96 Pulse Source Pulse Oximeter Temp 97.7 F Temp Source Temporal Artery Scan Pulse Oximetry (%) 99 Oxygen Delivery Method Room Air Intake Visit Reasons: Routine Accompanied by: Self / Same As Patient Allergies No Known Allergies Allergy (Verified 10/30/24 13:26) some adhesives Allergy (Unknown, Uncoded 05/02/24 13:12) rash Medication List - Last Reconciled 10/30/24 by MADI Sotelo atorvastatin 10 mg PO DAILY lorazepam 0.5 mg PO BID PRN 30 days Tobacco use date assessed: 10/30/24 Dental Screening Dental Screen Date: 10/30/24 Did you have a dental visit in the last 12 months?: Yes Did you have a dental problem in the last 6 months where you did not have access to dental care?: No HPI HPI Comments History of Present Illness Details 64-year-old female with history of anxiety and hyperlipidemia who is a current everyday cigarette smoker presents to the office today for management of chronic conditions and to establish care. Hyperlipidemia- on atorvastatin 10 mg daily. Due for lipid panel Anxiety-using lorazepam as needed for anxiety. Reports taking 1.5 tabs at night. Only using at night. Feels foggy during the day Cigarette smoking- 1 pack per week. Concerns: Weight loss- r/t recent passing of her mother. Stress of losing her. IBS has also flared as a result. 3 pounds lost in 6 pounds. Getting tension headaches. Health maintenance: Last screening mammogram 10/2023, negative for malignancy, 1 year follow-up advised. 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 Five year follow-up advised Last screening colonoscopy 05/2019 with 5 year follow-up advised due to tubular adenoma. Dr. Sánchez. [facility] end of January ROS: General: No fevers, malaise, unintentional weight loss HEENT: No blurred vision, diplopia. No sore throat, nasal congestion, rhinorrhea, sinus pain, ear pain Cardiovascular: No chest pain, palpitations, or leg edema Respiratory: No shortness of breath, wheezing, cough GI: No abdominal pain, nausea, vomiting, diarrhea, constipation, melena, hematochezia : No dysuria, hematuria, increased urinary frequency, decreased urinary output MSK: No myalgia, back pain Neuro: No headaches, weakness, paresthesias Skin: No rashes or lesions EXAM: Constitutional - Awake and Alert, No apparent distress Eyes - PERRL Cardiovascular - S1S2, RRR, No edema Respiratory - Normal lung expansion, Normal respiratory effort, No respiratory distress, CTA bilaterally Extremities - no calf tenderness bilaterally, no swelling Skin - Warm/Dry Neurological - Alert & oriented x3 Psychological - Appropriate affect [facility] Medical History (Updated 10/30/24 @ 13:48 by MADI Sotelo) Osteopenia Cigarette smoker Anxiety High cholesterol Surgical History History of colonoscopy Family History (Updated 10/30/24 @ 13:32 by Millie Davidson MA) Mother No problems noted. Father No problems noted. Social History Housing: Condominium Alcohol intake: current Alcohol intake frequency: holidays/special occasions only Patient Tobacco Use Status: Current everyday Tobacco user e-Cigarette/Vaping Use: Currently Using service: No Current occupational status: employed Cognitive needs: No Hearing needs: No Vision needs: No Female Reproductive History Menstrual Age of Menarche: 15 Questionnaire PHQ-9 Over the last 2 weeks, how often have you been bothered by any of the following problems? 1. Little interest or pleasure in doing things: not at all 2. Feeling down, depressed, or hopeless: nearly every day 3. Trouble falling or staying asleep, or sleeping too much: nearly every day 4. Feeling tired or having little energy: nearly every day 5. Poor appetite or overeating: nearly every day 6. Feeling bad about yourself - or that you are a failure or have let yourself or your family down: not at all 7. Trouble concentrating on things, such as reading the newspaper or watching television: not at all 8. Moving or speaking so slowly that other people could have noticed. Or the opposite - being so fidgety or restless that you have been moving around a lot more than usual: not at all 9. Thoughts that you would be better off or of hurting yourself in some way: not at all Total score: 12 Source: Developed by Drs. Ag Warner, Alberto Reyes and colleagues, with an educational ratna from [employer]. Thrive Questionnaire Date Thrive assessed: 10/30/24 I am a: Patient Within the past 12 months, did the food you bought not last and you didn't have the money to get more?: Never true Within the past 12 months, did you worry whether your food would run out before you got money to buy more?: Never true Do you have trouble paying for medicines?: No Do you have trouble getting transportation to medical appointments?: No Do you have trouble paying your heating and electricity bill?: No Do you have trouble taking care of your child, family member or friend?: No Do you have trouble with day-to-day activities such as bathing, preparing meals, shopping, managing finances, etc.?: No Are you currently unemployed and looking for a job?: No Are you interested in more education?: No THRIVE Score: 0 AUDIT C Alcohol Use Questionnaire (AUDIT-C) 1. How often do you have a drink containing alcohol?: Monthly or less 2. How many drinks containing alcohol do you have on a typical day when you are drinking?: 1 or 2 3. How often do you have six or more drinks on one occasion?: Less than monthly Total Score: 2 KAM-7 AMB Questionnaire KAM-7 Date KAM - 7 assessed: 10/30/24 Feeling nervous, anxious, or on edge: 0 = Not at all Not being able to stop or control worryin = Not at all Worrying too much about different things: 0 = Not at all Trouble relaxin = Not at all Being so restless that it is hard to sit still: 0 = Not at all Becoming easily annoyed or irritable: 0 = Not at all Feeling afraid as if something awful might happen: 0 = Not at all Total KAM-7 score (0-4 normal; 5-9 mild; 10-14 moderate; 15-21 severe): 0 Source: Developed by Drs. Ag Warner, Alberto Reyes and colleagues, with an educational ratna from [employer]. Physical exam (Primary Care) Vital Signs: Last Vital Signs Temp 97.7 F 10/30/24 13:28 Pulse 96 10/30/24 13:28 BP 120/72 10/30/24 13:28 Pulse Ox 99 10/30/24 13:28 Oxygen Delivery Method Room Air 10/30/24 13:28 BMI result Body Mass Index 18.5 Tobacco/Smoking Status: Tobacco use Status Tobacco use date assessed 10/30/24 10/30/24 13:33 Patient Tobacco Use Status Current everyday Tobacco 10/30/24 13:33 Tobacco use type 10/30/24 13:33 e-Cigarette/Vaping Use Currently Using 10/30/24 13:33 PHQ-9: PHQ-9 Score PHQ-9: Total score 12 10/30/24 13:38 Thrive Assessment: Date of Thrive Assessment Date Thrive assessed 10/30/24 10/30/24 13:33 Coding Level of Care Code New Pt Level 4 (41531) Complex EM visit Add On G2211 Diagnoses Anxiety F41.9 High cholesterol E78.00 Cigarette smoker F17.210 Osteopenia M85.80 Assessment & Plan Assessment & Plan (1) Anxiety: Code(s): F41.9 - Anxiety disorder, unspecified Category: Medical Plan: Experiencing grief reaction given loss of her mother. Condolences offered. Can continue using lorazepam as needed, okay to increase to 1.5 tabs nightly as needed. Contact the office for any further assistance as needed (2) High cholesterol: Code(s): E78.00 - Pure hypercholesterolemia, unspecified Category: Medical Plan: Lipid panel ordered. Continue atorvastatin, dose to be adjusted as indicated (3) Cigarette smoker: Code(s): F17.210 - Nicotine dependence, cigarettes, uncomplicated Category: Social Hx Plan: Counseled on cessation. We will consider cessation after grieving process (4) Osteopenia: Code(s): M85.80 - Other specified disorders of bone density and structure, unspecified site Category: Medical Plan: DEXA scan ordered. Calcium and vitamin-D as well as weight-bearing exercise Plan Follow-up in the office in 6 months. Orders: Orders Basic Metabolic Panel Today E78.00 - Pure hypercholesterolemia, unspecified, F41.9 - Anxiety disorder, unspecified Lipid Panel Today E78.00 - Pure hypercholesterolemia, unspecified, F41.9 - Anxiety disorder, unspecified Liver Panel Today E78.00 - Pure hypercholesterolemia, unspecified, F41.9 - Anxiety disorder, unspecified XR DEXA axial skeleton Today M85.80 - Other specified disorders of bone density and structure, unspecified site Vitamin D 25-OH Total Today E78.00 - Pure hypercholesterolemia, unspecified, F41.9 - Anxiety disorder, unspecified Medications: Refilled lorazepam 0.5 mg PO BID PRN 60 tabs 1RF anxiety 30 days
[2024-10-30 13:28] VITALS: BP 120/72; PULSE 96; TEMP 36.5; O2SAT 99; BMI 18.5
--- OUTSIDE RECORDS SUMMARY | 2024-10-30 14:09 | XMS_ITS | Patient Health Record ---
Author Organization [facility] Address [address] [place] [address] Care Team Providers Care Oven Roaster Name Role Phone Urvashi Garcia M.D. Primary Care Provider Unavail Michael Clemente Jr Unavailable [phone] Allergies No Known Allergies Reason For Referral No Information Medications Medication SIG (Take, Route, Frequency, Duration) Notes Start Date End Date Status Sutab [id number] MG [address] dose the evening before and second dose the morning of colonoscopy Orally Twice a day for 1 days 09/24/2024 Active LORazepam 0.5 MG 1 tablet as needed O rally every 6 hrs Active Atorvastatin Calcium 10 MG Oral for 90 Days Active Immunizations Vaccine Route Administration Date Status Comme nts Influenza Unknown 12/23/2021 Administered Influenza Unknown 12/27/2023 Administered Influenza Unknown 09/06/2018 Refused Social History Tobacco Use: Social History Observation Description Date Details (start date - stop date) Current Smoker NA - NA Tobacco Use/Smoking Question Answer Notes Patient is [...] Never (0 point) Points 2 Interpretation Negative Problems Problem Type SNOMED Code ICD Code Onset Dates Problem Status W/U Status Risk Notes Problem 172087231 Colon cancer screening (Z12.11) Active confirmed Problem 941063751 Change in bowel habits (R19.4) Active confirmed Problem 326165184 Irritable bowel syndrome with diarrhea (K58.0) Active confirmed Problem 259503196 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) Active confirmed Vital Signs Temperature 97.9 degrees Fahrenheit 09/24/2024 Blood pressure diastolic 01 mm Hg 09/24/2024 Height 59.5 in 09/24/2024 Blood pressure systolic 001 mm Hg 09/24/2024 Weight 97.8 lbs 09/24/2024 BMI 19.42 kg/m2 09/24/2024 Encounters Encounter Location Date Provider Diagnosis [facility] [address] [place] [address] 09/24/2024 Michael Sánchez Jr Irritable bowel syndrome with diarrhea K58.0 ; Gas bloat syndrome K92.89 and Colon cancer screening Z12.11 Assessments Encounter Date Diagnosis (ICD Code) Assessment Notes Treatment Notes Treatment Clinical Notes Section Notes 09/24/2024 Irritable bowel syndrome with diarrhea (ICD-10 - K58.0) We discussed colonoscopy today. We discussed irritable bowel syndrome today. She is aware of risks and benefits of colonoscopy and agrees to proceed.She is advised to use Imodium liberally for diarrheal symptoms. Follow-up will be in the future pending the results of her colonoscopy. 09/24/2024 Gas bloat syndrome (ICD-10 - K92.89) We discussed colonoscopy today. We discussed irritable bowel syndrome today. She is aware of risks and benefits of colonoscopy and agrees to proceed.She is advised to use Imodium liberally for diarrheal symptoms. Follow-up will be in the future pending the results of her colonoscopy. 09/24/2024 Colon cancer screening (ICD-10 - Z12.11) We discussed colonoscopy today. We discussed irritable bowel syndrome today. She is aware of risks and benefits of colonoscopy and agrees to proceed.She is advised to use Imodium liberally for diarrheal symptoms. Follow-up will be in the future pending the results of her colonoscopy. Plan Of Treatment Future Test Test Name Order Date COLONOSCOPY 01/18/2014 COLONOSCOPY 09/06/2018 COLONOSCOPY 05/31/2022 COLONOSCOPY 09/24/2024 Next Appt Details Provider Name:Michael Arevalo Gael fay Jr, 01/25/2025 09:00:00 AM, [address] [place] [address] , [place], [place], [phone], Insurance Providers Payer Name Payer Address Payer Phone Subscriber Number Group Number Insured Name Patient Relationship to Insured Coverage Start Date Coverage End Date [facility] [address] [address] [place], [place] [id number] WILMAR MORTON Self - patient is the insured Medical (General) History Medical History History ICD Code anxiety Basal cell carcinoma Colonoscopy 05/24, multiple tubular adeno mas, three-year followup Surgical History Surgery Date(Month/Year) breast biopsy
== END 2024-10-30 13:52 | disposition home or self-care (01) ==
LOC: HO.HMCHD 13:19
PROVIDERS: PCP Physician Assistant; Visit Provider Physician Assistant
DX: F41.9 Anxiety disorder, unspecified (principal); E78.00 Pure hypercholesterolemia, unspecified; F17.210 Nicotine dependence, cigarettes, uncomplicated; M85.80 Other specified disorders of bone density and structure, unspecified site

== ENCOUNTER → 2024-10-30 13:18 | Outpatient (BNVA) | payer OTHER, SELFPAY | PROVIDERS: PCP Physician Assistant; Visit Provider Physician Assistant | DX: E78.00 Pure hypercholesterolemia, unspecified (principal); F41.9 Anxiety disorder, unspecified; M85.80 Other specified disorders of bone density and structure, unspecified site; F17.210 Nicotine dependence, cigarettes, uncomplicated; Z79.899 Other long term (current) drug therapy; Z71.6 Tobacco abuse counseling; Z13.39 Encounter for screening examination for other mental health and behavioral disorders; Z13.30 Encounter for screening examination for mental health and behavioral disorders, unspecified | CPT/HCPCS: 99202 ==

== ENCOUNTER 2024-11-13 12:33 | Outpatient (REF) | payer OTHER, SELFPAY ==
--- NOTE | ~2024-11-13 | MM_ITS ---
EXAMINATION: MM SCREENING DIGITAL BREAST TOMOSYNTHESIS, BILATERAL CLINICAL INFORMATION: Screening. Asymptomatic. COMPARISON: Mammography: Comparison is made with available priors TECHNIQUE: Digital breast mammography with tomosynthesis is performed in both the craniocaudal and mediolateral oblique views along with computer-aided detection (CAD). FINDINGS: The breasts are heterogeneously dense, which may obscure small masses (ACR BI-RADS breast composition Category c). There are no significant masses, abnormal calcifications, or other abnormalities. MM/MM tomosynthesis screening BI IMPRESSION: No mammographic evidence of malignancy. ASSESSMENT: BI-RADS BI-RADS 1 - Negative RECOMMENDATION: Routine annual mammography screening. 1 year F/U This examination should not preclude the clinical evaluation of a suspicious palpable abnormality. This patient's information was entered into a reminder system with a target due date for their next mammogram. Electronically signed by: Ewa Ordaz DO 11/19/2024 09:57 AM EDT
--- OUTSIDE RECORDS SUMMARY | 2024-11-13 14:53 | XMS_ITS | Patient Health Record ---
Author Organization [facility] Address [address] [place] [address] Care Team Providers Care Internet Designer Name Role Phone Urvashi Garcia M.D. 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) Active confirmed Vital Signs Temperature 97.9 degrees Fahrenheit 09/24/2024 Blood pressure diastolic 01 mm Hg 09/24/2024 Height 59.5 in 09/24/2024 Blood pressure systolic 001 mm Hg 09/24/2024 Weight 97.8 lbs 09/24/2024 BMI 19.42 kg/m2 09/24/2024 Encounters Encounter Location Date Provider Diagnosis [facility] [address] [place] [address] 09/24/2024 Michael Sánchez Jr Irritable bowel syndrome [...] Arevalo Gael fay Jr, 01/25/2025 09:00:00 AM, [address] [place] [address] , [place], [place], [phone], Insurance Providers Payer Name Payer Address Payer Phone Subscriber Number Group Number Insured Name Patient Relationship to Insured Coverage Start Date Coverage End Date [facility] [address] [address] [place], [place] [id number] WILMAR MORTON Self - patient is the insured Medical (General) History Medical History History ICD Code anxiety Basal cell carcinoma Colonoscopy 05/24, multiple tubular adeno mas, three-year followup Surgical History Surgery Date(Month/Year) breast biopsy
== END 2024-11-13 12:34 | disposition home or self-care (01) ==
LOC: HO.MAMMO 12:33
PROVIDERS: PCP Physician Assistant; Visit Provider Internal Medicine
DX: Z12.31 Encounter for screening mammogram for malignant neoplasm of breast (principal)
CPT/HCPCS: 77063; 77067

== ENCOUNTER → 2024-11-13 12:45 | Outpatient (BNV) | payer OTHER, SELFPAY | PROVIDERS: PCP Physician Assistant; Visit Provider Internal Medicine | DX: Z12.31 Encounter for screening mammogram for malignant neoplasm of breast (principal) | CPT/HCPCS: 77063; 77067 ==

== ENCOUNTER 2025-01-07 10:12 | Outpatient (REF) | payer OTHER, SELFPAY ==
--- NOTE | ~2025-01-07 | MM_ITS ---
EXAMINATION: DXA BONE DENSITY AXIAL HISTORY: M85.80 - Other specified disorders of bone density and structure, unspecified... TECHNIQUE: [facility] Dual energy absorptiometry (DEXA) of the lumbar spine, total left hip, and femoral neck was performed. COMPARISON: Comparison is made with the prior examination dated 09/18/2020. FINDINGS: The bone mineral density of the lumbar spine is 0.769 g/cm2, corresponding to a T-score of -3.4, and a Z-score of -1.4. This is indicative of osteoporosis. This represents a BMD change of -13.2% compared to the prior exam. This is statistically significant. The bone mineral density of the left total hip is 0.700 g/cm2, corresponding to a T-score of -2.4, and a Z-score of -0.9. This is indicative of osteopenia. This represents a BMD change of -9.3% compared to the prior exam. This is not statistically significant. The bone mineral density of the left femoral neck is 0.632 g/cm2, corresponding to a T-score of -2.9, and a Z-score of -1.1. This is indicative of osteoporosis. This represents a BMD change of -9.8% compared to the prior exam. MM/XR DEXA axial skeleton IMPRESSION: Based on bone mineral density, and according to World Health Organization (WHO) criteria, the diagnosis is consistent with osteoporosis. Statistically, 68% of repeat scans fall within 1 SD (+/- 0.010 g/cm2 for AP spine L1-L4) and 1 SD (+/- 0.012 g/cm2 for femur total) [employer] is a trademark of the [employer] [place] [facility] [employer], a World Health Organization (WHO) Collaborating Center. Electronically signed by: Ag Rosales MD 01/07/2025 10:56 AM [facility]
--- OUTSIDE RECORDS SUMMARY | 2025-01-07 12:13 | XMS_ITS | Patient Health Record ---
Author Organization [facility] Address [address] [place] [address] Care Team Providers Care Box Finisher Name Role Phone Urvashi Garcia M.D. Primary Care Provider Unavail Michael Clemente Jr Unavailable [phone] Allergies No Known Allergies Reason For Referral No Information Medications Medication SIG (Take, Route, Frequency, Duration) Notes Start Date End Date Status Sutab [id number] MG [address] dose the evening before and second dose the morning of colonoscopy Orally Twice a day; Duration: 1 days 09/24/2024 Active Atorvastatin Calcium 10 MG Oral; Duration: 90 Days Active LORazepam 0.5 MG 1 tablet as needed O rally every 6 hrs Active Immunizations Vaccine Route Administration Date Status [...] Problem Status W/U Status Risk Notes Problem Colon cancer screening (606150990) Colon cancer screening (Z12.11) Active confirmed Problem Change in bowel habit (83471044) Change in bowel habits (R19.4) Active confirmed Problem Irritable bowel syndrome with diarrhea (137333297) Irritable bowel syndrome with diarrhea (K58.0) Active confirmed Problem Abdominal bloating (finding) (475304098) 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) Active confirmed Vital Signs Temperature 97.9 degrees Fahrenheit 09/24/2024 Blood pressure diastolic 01 mm Hg 09/24/2024 Height 59.5 in 09/24/2024 Blood pressure systolic 001 mm Hg 09/24/2024 Weight 97.8 lbs 09/24/2024 BMI 19.42 kg/m2 09/24/2024 Encounters Encounter Location Date Provider Diagnosis [facility] [address] [place] [id number] 09/24/2024 Michael Sánchez Jr Irritable bowel syndrome with diarrhea K58.0 ; Gas bloat syndrome K92.89 and Colon cancer screening Z12.11 [facility] [address] [place] [address] 09/24/2024 Michael Sánchez Jr [facility] [address] [place] [phone] 01/07/2025 Michael Sánchez Jr Colon cancer screening Z12.11 Assessments Encounter Date [...] future pending the results of her colonoscopy. 01/07/2025 Colon cancer screening (ICD-10 - Z12.11) 09/24/2024 Colon cancer screening (ICD-10 - Z12.11) [...] COLONOSCOPY 09/24/2024 Next Appt Details Provider Name:Michael Irina fay Jr, 01/25/2025 09:00:00 AM, [address] [place] [address] , [place], [place], [phone], Insurance Providers Payer Name Payer Address Payer Phone Subscriber Number Group Number Insured Name Patient Relationship to Insured Coverage Start Date Coverage End Date [facility] [address] [address] [place], [place] [id number] WILMAR MORTON Self - patient is the insured Medical (General) History Medical History History ICD Code anxiety Basal cell carcinoma Colonoscopy 05/24, multiple tubular adeno mas, three-year followup Surgical History Surgery Date(Month/Year) breast biopsy
== END 2025-01-07 10:13 | disposition home or self-care (01) ==
LOC: HO.MAMMO 10:12
PROVIDERS: PCP Physician Assistant; Visit Provider Physician Assistant
DX: Z13.820 Encounter for screening for osteoporosis (principal); M85.80 Other specified disorders of bone density and structure, unspecified site; M81.0 Age-related osteoporosis without current pathological fracture
CPT/HCPCS: 77080

== ENCOUNTER → 2025-01-07 10:30 | Outpatient (BNV) | payer OTHER, SELFPAY | PROVIDERS: PCP Physician Assistant; Visit Provider Radiology Diagnostic Radiology | DX: E28.39 Other primary ovarian failure (principal) | CPT/HCPCS: 77080 ==

== ENCOUNTER 2025-01-28 11:00 | Outpatient (AMB) | payer OTHER, SELFPAY ==
[2025-01-28 11:32] VITALS: BP 132/90; PULSE 111; TEMP 37; O2SAT 98; BMI 19.1
--- NOTE | 2025-01-28 11:32 | MHC.OFFWIV ---
Intake Vital Signs 01/28/25 11:32 Height 4 ft 11.5 in Weight 96 lb BMI 19.1 BP 132/90 H Blood Pressure Location Lt brachial Position Sitting Pulse 111 H Pulse Source Pulse Oximeter Temp 98.6 F Temp Source Oral Pulse Oximetry (%) 98 Oxygen Delivery Method Room Air Intake Visit Reasons: EP-belly issues Intake Note: pt presents with reports bloating, cramping and abdominal pain for 5 days- cancelled scheduled colonoscopy from last Tuesday. h/o gastritis, IBS. GI Dr Sánchez. Patient Tobacco Use Status: Current everyday Tobacco user Allergies adhesive tape Allergy (Intermediate, Verified 01/28/25 11:34) Rash (to some adhesives) Do you need a note to return to daycare/school/sports/work: No HPI HPI Comments History of Present Illness Details 64-year-old female presents to the walk-in clinic with worsening abdominal pain and cramping since evening. Reports bloating, intermittent cramping, and alternating constipation with loose stools. States she was scheduled for a screening colonoscopy last Tuesday but cancelled due to discomfort and concern that GI prep would worsen pain. She follows with Dr. Harrington (GI) and has a known history of IBS. Uses Imodium PRN for diarrhea and OTC stool softeners for constipation. Patient expresses concern that ?something might be wrong,? possibly an infection, and is requesting lab work. Advised patient to contact GI for an urgent appointment or present to the ED for further work-up; patient declined ED. Denies fever, chills, vomiting, hematochezia, melena, unintentional weight loss, dysuria, flank pain. [facility] Medical History (Updated 01/28/25 @ 12:26 by Elham Concepcion NP) Irritable bowel syndrome (IBS) Osteoporosis Cigarette smoker Anxiety High cholesterol Surgical History History of colonoscopy Family History (Updated 10/30/24 @ 13:32 by Millie Davidson MA) Mother No problems noted. Father No problems noted. Social History (Updated 01/23/25 @ 13:14 by Corinne Power RN) Housing: Condominium Alcohol intake: current Alcohol intake frequency: holidays/special occasions only Patient Tobacco Use Status: Current everyday Tobacco user e-Cigarette/Vaping Use: Currently Using service: No Current occupational status: employed Cognitive needs: No Hearing needs: No Vision needs: No Female Reproductive History Menstrual Age of Menarche: 15 Review of Systems Const All systems reviewed & are unremarkable except as noted in HPI and below Physical Exam Vital Signs: Last Vital Signs Temp 98.6 F 01/28/25 11:32 Pulse 111 H 01/28/25 11:32 BP 132/90 H 01/28/25 11:32 Pulse Ox 98 01/28/25 11:32 Oxygen Delivery Method Room Air 01/28/25 11:32 BMI result Body Mass Index 19.1 Const General: no acute distress Nutritional Appearance: well nourished Orientation/consciousness: patient oriented x3 Resp Effort & Inspection: normal respiratory effort Cardio Rate: regular rate GI Palpation (GI): Soft to palpation, not firm, Tenderness to palpation present (GI) (Generalized with mild distention ), no guarding, not rigid, No hepatosplenomegaly present and no hernias Auscultation: normal bowel sounds Rectal Exam - Female: deferred Neuro General: patient oriented x3, gait normal and moves all extremities Psych Speech and movement: Normal speech and movement present Assessment & Plan Assessment & Plan (1) Irritable bowel syndrome (IBS): Code(s): K58.9 - Irritable bowel syndrome, unspecified Plan: Abdominal pain with alternating bowel habits ? likely related to known IBS, but differential includes viral gastroenteritis, vs constipation with overflow, vs diverticulitis, vs colitis, but less likely partial obstruction. Bloating and change in stool pattern ? chronic IBS history but worsening symptoms warrant GI follow-up. Offered KUB to r/o SBO Strongly advised ED evaluation for worsening pain, such as inability to tolerate PO, fever, GI bleeding, or signs of obstruction; patient declined today. Recommended urgent follow-up with GI (Dr. Harrington) ? advised patient to call for the soonest available appointment. Continue PRN medications Imodium (only for true diarrhea) and stool softeners as needed, but avoid overuse. Orders: Orders XR KUB Today K58.9 - Irritable bowel syndrome, unspecified Coding Level of Care Code Est Pt Level 4 (55184) Diagnoses Irritable bowel syndrome (IBS) K58.9 Time Spent (min) 20
== END 2025-01-28 12:36 | disposition home or self-care (01) ==
PROVIDERS: PCP Physician Assistant; Visit Provider Nurse Practitioner Family
DX: K58.9 Irritable bowel syndrome, unspecified (principal)

== ENCOUNTER 2025-01-28 11:00 | Outpatient (REF) | payer OTHER, SELFPAY ==
--- NOTE | ~2025-01-28 | XR_ITS ---
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 FINDINGS: Gas is seen throughout small and large bowel without gross distention. No abnormal calcific lesions are visible over the renal contours. Small calcifications in the pelvis are probably related to phleboliths. No bony abnormality is apparent. XR/XR KUB IMPRESSION: There is a nonspecific, nonobstructed bowel gas pattern. Electronically signed by: Thomas Teran MD 01/28/2025 01:31 PM [facility]
== END 2025-01-28 11:01 | disposition home or self-care (01) ==
LOC: HO.HMGCX 11:00
PROVIDERS: PCP Physician Assistant; Visit Provider Nurse Practitioner Family
DX: R14.0 Abdominal distension (gaseous) (principal); R10.84 Generalized abdominal pain; F17.210 Nicotine dependence, cigarettes, uncomplicated; Z87.19 Personal history of other diseases of the digestive system
CPT/HCPCS: 74018; 99212

== ENCOUNTER → 2025-01-28 13:14 | Outpatient (BNV) | payer OTHER, SELFPAY | PROVIDERS: PCP Physician Assistant; Visit Provider Radiology Diagnostic Radiology | DX: K58.9 Irritable bowel syndrome, unspecified (principal) | CPT/HCPCS: 74018 ==